=== PATIENT | female | born 1975 | race American Indian/Alaskan Native ===

== ENCOUNTER 2017-04-20 01:03 | Emergency (ER) | payer OTHER ==
[~2017-04-20] VITALS: Ht 157.5 cm; Wt 89.8 kg
[~2017-04-20 01:03] MED LIST: ALEVE220 M1 PO; AUGMENTIN 875-1 EACH PO; AZITHROMYCIN250 MG PO; CEPHALEXIN500 MG PO; CLARITIN10 MG PO; CRUTCH1 EACH; DICYCLOMINE HCL10 MG PO; FLEXERIL10 MG PO; GUAIATUSSIN AC10 ML PO; HYDROCODON-ACE1 EAC8 PO; IBUPROFEN800 MG PO; KEFLEX500 MG PO; LOPERAMIDE2 MG PO; MELOXICAM15 MG PO; NORCO 5-325 TA1 EACH PO; PRENATAL 19 TA1 EAC1 PO; PRENATAL-FOLIC1 EACH PO; PROGESTERONE100 MG PO; PROMETHAZINE HC25 M1 PO; SEPTRA DS TABL1 EACH PO; TRAMADOL HCL50 MG PO; VITAMIN D350000 UNIT PO
[2017-04-20] MEDS ORDERED: TRAMADOL HCL50 MG PO (03:29)
== END 2017-04-20 03:57 | disposition home or self-care (01) ==
LOC: ED 01:03
DX: S20.211A Contusion of right front wall of thorax, initial encounter (principal); F17.200 Nicotine dependence, unspecified, uncomplicated; Z79.899 Other long term (current) drug therapy; W19.XXXA Unspecified fall, initial encounter
CPT/HCPCS: 71101; 99282; 99283

== ENCOUNTER 2017-04-22 17:01 | Emergency (ER) | payer OTHER ==
[~2017-04-22] VITALS: Ht 157.5 cm; Wt 86.2 kg
[2017-04-22] MEDS ORDERED: PERCOCET 5-3251 EACH PO (18:06)
--- NOTE | 2017-04-26 19:59 | EKG ---
[facility] [address] [facility] [place] [address] Signed Normal sinus rhythm Normal ECG No previous ECGs available Confirmed by PATO DAVIES MD ([id number]) on 04/26/2017 7:59:28 PM Electronically Signed By: PATO DAVIES MD 04/26/171958 PATIENT NAME: MO TALLEY Electrocardiogram DATE OF : 77 PHYSICIAN: PATO DAVIES MD REPORT #: [id number] REPORT IS CONFIDENTIAL AND NOT TO BE RELEASED WITHOUT AUTHORIZATION
== END 2017-04-22 18:29 | disposition home or self-care (01) ==
LOC: ED 17:01
DX: S20.211A Contusion of right front wall of thorax, initial encounter (principal); F17.200 Nicotine dependence, unspecified, uncomplicated; Z79.899 Other long term (current) drug therapy; W22.8XXA Striking against or struck by other objects, initial encounter
CPT/HCPCS: 93005; 93010; 99284

== ENCOUNTER 2018-11-08 00:34 | Emergency (ER) | payer OTHER ==
[~2018-11-08] VITALS: Ht 157.5 cm; Wt 86.2 kg
[~2018-11-08 00:34] MED LIST changes: +PERCOCET 5-3251 EACH PO; +ULTRAM50 MG PO
[2018-11-08] MEDS ORDERED: ZOFRAN4 MG PO (03:06)
== END 2018-11-08 03:16 | disposition home or self-care (01) ==
LOC: ED 00:34
DX: A08.4 Viral intestinal infection, unspecified (principal); G43.909 Migraine, unspecified, not intractable, without status migrainosus; F17.200 Nicotine dependence, unspecified, uncomplicated
CPT/HCPCS: 80053; 81001; 83690; 85025; 96361; 96374; 99284-25; J2405; J7030

== ENCOUNTER 2020-05-11 10:12 | Emergency (ER) | payer OTHER ==
[~2020-05-11] VITALS: Ht 157.5 cm; Wt 86.2 kg
--- OUTSIDE RECORDS SUMMARY | ~2020-05-11 | XMS | Encounter Summary ---
Demographics + + + | Address | [address] | | | [place] [address] | + + + | Home Phone | | + + + | Preferred Language | Unknown | + + + | Marital Status | | + + + | Oriental Orthodox Affiliation | Unknown | + + + | Race | or | + + + | Ethnic Group | Not or | + + + Author + + + | Author | [facility] | | | and [place] | + + + | Organization | [facility] | | | and [place] | + + + | Address | Unknown | + + + | Phone | Unavailable | + + + Support + + + + + | Name | Relationship | Address | Phone | + + + + + | Fco Chester | ECON | [address] | | | | | [place] | | | | | [address] | | + + + + + Care Team Providers + +------+ + | Care Senior Sales Director Name | Role | Phone | + +------+ + PCP | Unavailable | + +------+ + Reason for Referral Diagnostic/Screening (Routine) +--------+--------+ + + + + | Status | Reason | Specialty | Diagnoses / | Referred By | Referred To | | | | | Procedures | Contact | Contact | +--------+--------+ + + + + | Closed | | Radiology | Diagnoses | Ángel, | [facility] | | | | | Diplopia | Jhoan Walker, | [address] | | | | | Paroxysmal | [address] | [place], | | | | | [place] | updated | [place] | | | | | Procedures | address | [address] | | | | | MRI | | Phone: | | | | | Angiogram | | [phone] | | | | | Head wo | | Fax: | | | | | Contrast | | [phone] | +--------+--------+ + + + + Reason for Visit Diagnostic/Screening (Routine) +--------+--------+ + + + + | Status | Reason | Specialty | Diagnoses / | Referred By | Referred To | | | | | Procedures | Contact | Contact | +--------+--------+ + + + + | Closed | | Radiology | Diagnoses | Ángel, | [facility] | | | | | Diplopia | Jhoan Walker, | [address] | | | | | Paroxysmal | MD [address] | [place], | | | | | [place] | updated | [place] | | | | | Procedures | address | [address] | | | | | MRI | | Phone: | | | | | Angiogram | | [phone] | | | | | Head wo | | Fax: | | | | | Contrast | | [phone] | +--------+--------+ + + + + Encounter Details +--------+ + + + + | Date | Type | Department | Care Team | Description | +--------+ + + + + | 12/16/ | Hospital | [facility] | Jhoan Neal | Diplopia; Paroxysmal | | 2014 | Encounter | [facility] [address] [place] [address] updated | [place] | | | | [place], | address | | | | | [place] [address] | | | | | | [phone] | | | +--------+ + + + + Social History + +-------+ +--------+------+ | Tobacco Use | Types | Packs/Day | Years | Date | | | | | Used | | + +-------+ +--------+------+ | Current Every Day | | | | | | Smoker | | | | | + +-------+ +--------+------+ + + +---------+ + | Alcohol Use | Drinks/Week | oz/Week | Comments | + + +---------+ + | Not Asked | | | recovering alcoholic | + + +---------+ + + + + | Sex Assigned at | Date Recorded | | | | + + + | Not on file | | + + + documented as of this encounter Medications at Time of Discharge + + + +---------+ + + | Medication | Sig | Dispensed | Refills | Start | End Date | | | | | | Date | | + + + +---------+ + + | tizanidine | Take 1 capsule by | 90 | 2 | 12/17/19 | | | (ZANAFLEX) 2 MG | mouth 3 times daily | capsule | | 15 | | | capsule | as needed for Muscle | | | | | | | spasms. | | | | | + + + +---------+ + + documented as of this encounter Plan of Treatment Not on filedocumented as of this encounter Procedures + +--------+ + + + | Procedure Name | Priori | Date/Time | Associated Diagnosis | Comments | | | ty | | | | + +--------+ + + + | MRI ANGIOGRAM HEAD | Routin | 12/16/2014 | Diplopia | Results for this | | WO CONTRAST | e | 10:27 AM | Paroxysmal | procedure are in the | | | | PDT | [place] | results section. | + +--------+ + + + documented in this encounter Results MRI Angiogram Head wo Contrast (12/16/2014 10:27 AM PDT) + + | Specimen | + + | | + + + + + | Narrative | Performed At | + + + | MRI ANGIOGRAM HEAD WO CONTRAST 12/16/2014 10:15 AM HISTORY: | [facility] | | Diplopia, right sided headaches. COMPARISON: None. PROTOCOL: | [facility] | | MRA of the head was performed with axial 3-D [id number] technique | [facility] | | without contrast. Reconstruction views were obtained. FINDINGS: | - IMAGING | | Right Carotid: The petrous, cavernous, and supraclinoid segments are | | | patent. There is normal branching of the MCA and ROZINA. An anterior | | | communicating artery is observed. A posterior communicating artery is | | | seen. There is a small posterior communicating artery. An anterior | | | communicating artery is present. Left Carotid: The petrous, | | | cavernous, and supraclinoid segments are patent. There is normal | | | branching of the MCA and ROZINA. An anterior communicating artery is | | | observed. A posterior communicating artery is seen. Anterior and | | | posterior communicating arteries are seen. Vertebrobasilar: The | | | distal vertebral arteries are patent. The basilar artery is normal. A | | | right anterior inferior cerebellar artery is present. Normal | | | branching is observed of the superior cerebellar arteries. Normal | | | branching of the poultry culler is seen. Limited evaluation of the brain | | | demonstrates no acute findings. Imaged orbits, paranasal sinuses, and | | | mastoids are unremarkable. IMPRESSION - Gross patency of | | | bilateral carotid and vertebral basilar arteries with no evidence for | | | aneurysm. Dictated and Signed by: Varun Coon MD | | | Electronically signed: 12/16/2014 1:52 PM | | + + + + + | Procedure Note | + + | Eric, Rad Results In - 12/16/2014 1:55 PM PDT MRI ANGIOGRAM HEAD WO CONTRAST | | 12/16/2014 10:15 AMHISTORY: Diplopia, right sided headaches.COMPARISON: None.PROTOCOL: | | MRA of the head was performed with axial 3-D vnua-hh-wihdly techniquewithout contrast. | | Reconstruction views were obtained.FINDINGS:Right Carotid: The petrous, cavernous, and | | supraclinoid segments are patent.There is normal branching of the MCA and ROZINA. An | | anterior communicating arteryis observed. A posterior communicating artery is seen. | | There is a smallposterior communicating artery. An anterior communicating artery is | | present.Left Carotid: The petrous, cavernous, and supraclinoid segments are patent.There | | is normal branching of the MCA and ROZINA. An anterior communicating arteryis observed. A | | posterior communicating artery is seen. Anterior and posteriorcommunicating arteries are | | seen.Vertebrobasilar: The distal vertebral arteries are patent. The basilar artery | | isnormal. A right anterior inferior cerebellar artery is present. Normal branchingis | | observed of the superior cerebellar arteries. Normal branching of the poultry culler | | isseen.Limited evaluation of the brain demonstrates no acute findings. Imaged | | orbits,paranasal sinuses, and mastoids are unremarkable.IMPRESSION -Gross patency of | | bilateral carotid and vertebral basilar arteries with noevidence for aneurysm.Dictated | | and Signed by: Varun Coon MD Electronically signed: 12/16/2014 1:52 PM | |is observed. A posterior communicating artery is seen. Anterior and posterior | |communicating arteries are seen. | | | |Vertebrobasilar: The distal vertebral arteries are patent. The basilar artery is | |normal. A right anterior inferior cerebellar artery is present. Normal branching | |is observed of the superior cerebellar arteries. Normal branching of the poultry culler is | |seen. | | | |Limited evaluation of the brain demonstrates no acute findings. Imaged orbits, | |paranasal sinuses, and mastoids are unremarkable. | | | |IMPRESSION - | |Gross patency of bilateral carotid and vertebral basilar arteries with no | |evidence for aneurysm. | | | |Dictated and Signed by: Varun Coon MD | | Electronically signed: 12/16/2014 1:52 PM | + + + + + + + | Performing | Address | City/State/Zipcode | Phone Number | | Organization | | | | + + + + + | [facility] | [address] | [place], [place] | [phone] | | [facility] | | [address] | | | - IMAGING | | | | + + + + + documented in this encounter Visit Diagnoses + + | Diagnosis | + + | Diplopia | + + | Paroxysmal hemicrania Episodic paroxysmal hemicrania | + + documented in this encounter"
--- OUTSIDE RECORDS SUMMARY | ~2020-05-11 | XMS | Encounter Summary ---
Demographics + + + | Address | [address] | | | [place] [address] | + + + | Home Phone | | + + + | Preferred Language | Unknown | + + + | Marital Status | | + + + | Jew Affiliation | Unknown | + + + | Race | or | + + + | Ethnic Group | Not or | + + + Author + + + | Author | [facility] | | | and [place] | + + + | Organization | [facility] | | | and [place] | + + + | Address | Unknown | + + + | Phone | Unavailable | + + + Support + + + + + | Name | Relationship | Address | Phone | + + + + + | Fco Chester | ECON | [address] | | | | | [place] | | | | | [address] | | + + + + + Care Team Providers + +------+ + | Care Jig Grinder Set Up Operator Name | Role | Phone | + +------+ + PCP | Unavailable | + +------+ + Reason for Visit + + + | Reason | Comments | + + + | Hand Pain | left carpal tunnel pain ONSET 10 months | + + + | Other | establish care with Miguel Ángel Zack | + + + Evaluate & Treat (Routine) +--------+--------+ + + + + | Status | Reason | Specialty | Diagnoses / | Referred By | Referred To | | | | | Procedures | Contact | Contact | +--------+--------+ + + + + | Closed | | Orthopedic | Diagnoses | Leonel, | Elpidio, | | | | Surgery | [place] | Nathaniel Cooper, | Juan Cooper MD | | | | | tunnel | [facility] [address] | [address] [place] [address] | | | | | syndrome | [address] | [address] | | | | | | [place]ANAY | [place] | | | | | | [place], | [address] Phone: | | | | | | [place] [address] | [phone] | | | | | | Phone: | Fax: | | | | | | [phone] | [phone] | | | | | | Fax: | | | | | | | [phone] | | +--------+--------+ + + + + Encounter Details +--------+---------+ + + + | Date | Type | Department | Care Team | Description | +--------+---------+ + + + | 04/29/ | Office | [facility] | Miguel Ángel Dixon | Radial styloid | | 2016 | Visit | ORTHOPEDIC SURGERY | [address] | tenosynovitis of | | | | [address] [place] | [place] | left hand (Primary | | | | [place] | [place], [place] [address] | Dx); Left carpal | | | | [address] | [phone] | tunnel syndrome | | | | [phone] | | | +--------+---------+ + + + Social History + +-------+ [...] + + documented as of this encounter Last Filed Vital Signs + + + + + | Vital Sign | Reading | Time Taken | Comments | + + + + + | Blood Pressure | - | - | | + + + + + | Pulse | - | - | | + + + + + | Temperature | 36.6 C (97.8 F) | 04/29/2016 4:08 PM | | | | | PDT | | + + + + + | Respiratory Rate | - | - | | + + + + + | Oxygen Saturation | - | - | | + + + + + | Inhaled Oxygen | - | - | | | Concentration | | | | + + + + + | Weight | 93.9 kg (207 lb) | 04/29/2016 4:08 PM | | | | | PDT | | + + + + + | Height | 157.5 cm (5' 2") | 04/29/2016 4:08 PM | | | | | PDT | | + + + + + | Body Mass Index | 37.86 | 04/29/2016 4:08 PM | | | | | PDT | | + + + + + documented in this encounter H&P Notes Miguel Ángel Dixon PA-C - 04/30/2016 5:39 PM PDTFormatting of this note might be differe nt from the original. ORTHOPEDICS [address] [place] [id number] FAX: [phone] Name: Ashley Brewer : 1975 Age: 40 y.o. Todays Date: 04/30/2016 Primary Care Provider: Nathaniel Castaneda PA-C Chief Complaint Patient presents with Hand Pain left carpal tunnel pain ONSET 10 months Other establish care with Miguel Ángel Dixon History of Present Illness: Ashley Brewer is a new patient that presents with left carpal tunnel syndrome and pain in her left wrist. Describes that she has had left carpal tunnel syndrome for over the past 5 years that was previously diagnosed by Dr. Esqueda in December 2011 that was diagnosed as mod erately severe. Today she states that she has been dropping objects and has a significant o nly decreased director of diversity and inclusion strength. However she is not present with the characteristic numbness an d tingling for carpal tunnel syndrome. Interestingly she denies numbness and tingling. She also states today that she has pain at the radial aspect of the left wrist. Describes the pain has been present for approximately the past 10 months and denies any inciting incident or trauma. Describes the pain as sharp and worse when she uses her left hand. Relieved wit h rest. She presented this complaint to her primary care provider who diagnosed with tendin itis. Patient describes that she did receive 23 injection therapy courses at this area but received no pain relief. It is unclear exactly where the injection therapies were performed at that she does not believe that it was at the Current level of pain today is rated at 10 out of 10 at the left wrist? Past Medical History Diagnosis Date Migraine Past Surgical History Procedure Laterality Date Dilation and curettage of uterus section 01/22/16 Allergies Allergen Reactions Oxycodone Rash Indomethacin Swelling Current Outpatient Prescriptions Medication Sig Dispense Refill HYDROcodone-acetaminophen (NORCO) 5-325 mg per tablet Take 1 tablet by mouth. ibuprofen (ADVIL,MOTRIN) 600 MG tablet Take 600 mg by mouth. tizanidine (ZANAFLEX) 2 MG capsule Take 1 capsule by mouth 3 times daily as needed for Muscle spasms. 90 capsule 2 traMADol (ULTRAM) 50 mg tablet Take 1 tablet by mouth EVERY 6 TO 8 HOURS NEEDED for Pain. 30 tablet 0 No current facility-administered medications for this visit. History reviewed. No pertinent family history. History Substance Use Topics Smoking status: Current Every Day Smoker Smokeless tobacco: Not on file Alcohol Use: Not on file Comment: recovering alcoholic Review of Systems: Constitutional: Negative for fever, malaise, fatigue or weight loss. HENT: Negative for vision loss/changes. Positive for glasses and or contacts. Respiratory: Negative for Shortness of breath or labored respirations Cardiovascular: Negative for chest pain, palpitations and leg swelling. Gastrointestinal: Negative for nausea, vomiting, diarrhea and constipation. Negative for a bdominal pain. Musculoskeletal: Positive for joint pain Genitourinary: Negative for incontinence or dysuria Skin: Negative for rashs and wounds. Neurological: Negative for dizziness, fainting, or seizures. Psych: Negative for depression, nervousness or anxiety Imaging/Studies: Reviewed imaging studies today in our office Xr Wrist Left 3 + Vw 04/29/2016 EXAM: XR WRIST LEFT 3 + VW dated 04/29/2016 2:53 PM HISTORY:WRIST PAIN COMPARI SON: None. FINDINGS:Prominent scapholunate interosseous space. No abnormal scapholunate an gle. No abnormal tilt of the lunate. No acute osseous abnormalities. No significant degen erative changes. Mineralization is normal. The soft tissues are unremarkable. IMPRESSION - Prominent scapholunate interosseous space. This suggests the possibility of underlying l igamentous injury. Dictated and Signed by: Froylan Ruiz MD Electronically signed: 04/19 4:24 PM Physical Exam: Filed Vitals: 04/29/16 1608 Temp: 36.6 C (97.8 F) TempSrc: Temporal Height: 1.575 m (5' 2") Weight: 93.895 kg (207 lb) Constitutional: Pleasant and cooperative with exam. In no acute distress. Appears their stated age. Head: Normal cephalic and atraumatic. Eyes: EOM intact ENT: Adequate hearing noted bilaterally Cardiovacular: No lower extremity edema noted. Pulmonary: Non-labored respirations. Pt does not appear short of breath. Musculoskeletal: Examination of the left hand reveals no identifiable deformity and hands are symmetrical compared bilaterally. Examination of the palmar aspect of the wrist and wise d reveals mild thenar atrophy. She describes that Tinel's and Phalen's tests did not cause her any discomfort today for they have been positive in the past as documented by her primar y care provider. She has a very significant decreased director of diversity and inclusion strength left hand when compared bilaterally. Approximately one quarter strength. She has been dropping objects in her lef t hand. She has a very strong ulnar deviation test the left hand and has no discomfort with the same test at the right hand. Pain located at the first dose compartment just proximal to the anatomical snuffbox Neurologic: No obvious neurological abnormalities observed with patient. Skin: Warm and dry. No erythema, induration, swelling or signs of infection are observed Psych: Pt is alert, oriented. Answers questions promptly when asked Assessment/Plan: 1. Left carpal tunnel syndrome 2. Left de Quervain's synovitis A. patient is diagnosed with quite significant carpal tunnel syndrome in 2010 and unfortun ately could not proceed with surgical intervention although it was recommended. She now wis hes to proceed with surgical intervention as the symptomatology is becoming more severe in t he left hand and she is now dropping objects and unable to director of diversity and inclusion her daughter well. Therefor e did review treatment options consisting of anti-inflammatory's, wrist bracing and surgical intervention. Patient wishes to proceed with surgical intervention. Therefore I did revie w the procedure for a left carpal tunnel release with expected outcome and expected recovery time. Patient wishes to proceed with authorization for a left carpal tunnel release. Info rmed him that I will submit for this procedure and she'll be contact by our office staff for further scheduling and preoperative exam with Dr. Juan Magallanes. In regards to the lef t de Quervain's tenosynovitis she has had to 3 course of injection therapy at the left hand by her primary care provider which provided her no significant relief. Patient does not bel ieve that injection therapy was provided in the right location at the first dorsal compartme nt tendon as physical exam reviewed today. She believes that injection therapy was previous ly performed more proximally near the MCP joint. Therefore she does wish to proceed with re peat injection therapy. We did discuss further treatment options consisting of an inflammat ory, wrist bracing, injection and surgical intervention. She is to receive injection therap y. However on time constraints will not allow for induction therapy today. Patient states that she will follow-up for injection therapy at the left wrist. B. Patient is advised that if they have any questions, comments or concerns to contact our office. I spent 30 minutes face to face with the patient, with over 50% spent in counseling and/or coordination of care regarding chronic left carpal tunnel syndrome, left de Quervain's synov itis, review pathology, nerve Study and past treatments with further discussion and developm ent of our treatment plan with review of a carpal tunnel release surgery. Miguel Ángel Dixon PA-C 04/30/2016 17:39 This history and physical was dictated using the [employer] voice recognition system. There may be minor errors in grammar. documented in th is encounter Plan of Treatment Not on filedocumented as of this encounter Visit Diagnoses + + | Diagnosis | + + | Radial styloid tenosynovitis of left hand - Primary Radial styloid tenosynovitis | + + | Left carpal tunnel syndrome Carpal tunnel syndrome | + + documented in this encounter
--- OUTSIDE RECORDS SUMMARY | ~2020-05-11 | XMS | Encounter Summary ---
Demographics + + + | Address | [address] | | | [place] [address] | + + + | Home Phone | | + + + | Preferred Language | Unknown | + + + | Marital Status | | + + + | Yazidism Affiliation | Unknown | + + + | Race | or | + + + | Ethnic Group | Not or | + + + Author + + + | Author | [facility] | | | and [place] | + + + | Organization | [facility] | | | and [place] | + + + | Address | Unknown | + + + | Phone | Unavailable | + + + Support + + + + + | Name | Relationship | Address | Phone | + + + + + | Fco Chester | ECON | [address] | | | | | [place] | | | | | [address] | | + + + + + Care Team Providers + +------+ + | Care Scada Engineer Name | Role | Phone | + +------+ + PCP | Unavailable | + +------+ + Encounter Details +--------+ + + + + | Date | Type | Department | Care Team | Description | +--------+ + + + + | 04/14/ | Orders Only | [facility] | Miguel Ángel Dixon | Carpal tunnel | | 2016 | | ORTHOPEDIC SURGERY | [address] | syndrome of left | | | | [address] [place] | [address] [place] | wrist (Primary Dx) | | | | [place], [place] | [place] [address] | | | | | [address] | [phone] | | | | | [phone] | | | +--------+ + + + [...] Not on filedocumented as of this encounter Results XR Wrist Left 3 + Vw (04/29/2016 3:40 PM PDT) + + | Specimen | + + | | + + + + + | Narrative | Performed At | + + + | EXAM: XR WRIST LEFT 3 + VW dated 04/29/2016 2:53 PM HISTORY:WRIST | [facility] | | PAIN COMPARISON: None. FINDINGS:Prominent scapholunate | [facility] | | interosseous space. No abnormal scapholunate angle. No abnormal | [facility] | | tilt of the lunate. No acute osseous abnormalities. No | - IMAGING | | significant degenerative changes. Mineralization is normal. The | | | soft tissues are unremarkable. IMPRESSION - Prominent | | | scapholunate interosseous space. This suggests the possibility of | | | underlying ligamentous injury. Dictated and Signed by: Froylan Robbins | | | MD Joseph Electronically signed: 04/29/2016 4:24 PM | | + + + + + | Procedure Note | + + | Eric, Rad Results In - 04/29/2016 4:27 PM PDT EXAM: XR WRIST LEFT 3 + VW dated | | 04/29/2016 2:53 PMHISTORY:WRIST PAINCOMPARISON: None.FINDINGS:Prominent scapholunate | | interosseous space. No abnormal scapholunateangle. No abnormal tilt of the lunate. No | | acute osseous abnormalities. Nosignificant degenerative changes. Mineralization is | | normal. The soft tissuesare unremarkable.IMPRESSION -Prominent scapholunate | | interosseous space. This suggests the possibility ofunderlying ligamentous | | injury.Dictated and Signed by: Froylan Ruiz MD Electronically signed: 04/29/2016 | | 4:24 PM | |significant degenerative changes. Mineralization is normal. The soft tissues | |are unremarkable. | | | |IMPRESSION - | | | |Prominent scapholunate interosseous space. This suggests the possibility of | |underlying ligamentous injury. | | | |Dictated and Signed by: Froylan Ruiz MD | | Electronically signed: 04/29/2016 4:24 PM | + + + + + + + | Performing | Address | City/State/Zipcode | Phone Number | | Organization | | | | + + + + + | [facility] | [address] | [place] | [phone] | | [facility] | | [address] | | | - IMAGING | | | | + + + + + documented in this encounter Visit Diagnoses + + | Diagnosis | + + | Carpal tunnel syndrome of left wrist - Primary Carpal tunnel syndrome | + + documented in this encounter"
--- OUTSIDE RECORDS SUMMARY | ~2020-05-11 | XMS | Encounter Summary ---
Demographics + + + | Address | [address] | | | [place] [address] | + + + | Home Phone | | + + + | Preferred Language | Unknown | + + + | Marital Status | | + + + | Mormon Affiliation | Unknown | + + + | Race | or | + + + | Ethnic Group | Not or | + + + Author + + + | Author | [facility] | | | and [place] | + + + | Organization | [facility] | | | and [place] | + + + | Address | Unknown | + + + | Phone | Unavailable | + + + Support + + + + + | Name | Relationship | Address | Phone | + + + + + | Fco Chester | ECON | [address] | | | | | [place] | | | | | [address] | | + + + + + Care Team Providers + +------+ + | Care Grain Thresher Name | Role | Phone | + +------+ + PCP | Unavailable | + +------+ + Encounter Details +--------+ + + + + | Date | Type | Department | Care Team | Description | +--------+ + + + + | 04/14/ | Orders Only | [facility] | Miguel Ángel Dixon | Carpal tunnel | | 2015 | | ORTHOPEDIC SURGERY | [address] | syndrome of left | | | | [address] [place] | [address] [place] | wrist | | | | [place], [place] | [place] [address] | | | | | [address] | [phone] | | | | | [phone] | | | +--------+ + + + [...] | + +--------+ + + + | XR WRIST LEFT 3 + VW | Routin | 04/29/2016 | Carpal tunnel | Results for this | | | e | 3:40 PM | syndrome of left | procedure are in the | | | | PDT | wrist | results section. | + +--------+ + + + documented in this encounter Results XR Wrist Left 3 + Vw (04/29/2016 3:40 PM PDT) + + | Specimen | + + | | + + + + + | Narrative | Performed At | + + + | EXAM: XR WRIST LEFT 3 + VW dated 04/29/2016 2:53 PM HISTORY:WRIST | [facility] | | PAIN COMPARISON: None. FINDINGS:Prominent scapholunate | [facility] | | interosseous space. No abnormal scapholunate [...] | + + + + + | [facility] | [address] | [place] | [phone] | | [facility] | | [address] | | | - IMAGING | | | | + + + + + documented in this encounter Visit Diagnoses + + | Diagnosis | + + | Carpal tunnel syndrome of left wrist Carpal tunnel syndrome | + + documented in this encounter"
--- OUTSIDE RECORDS SUMMARY | ~2020-05-11 | XMS | Encounter Summary ---
Demographics + + + | Address | [address] | | | [place] [address] | + + + | Home Phone | | + + + | Preferred Language | Unknown | + + + | Marital Status | | + + + | Baptism Affiliation | Unknown | + + + | Race | or | + + + | Ethnic Group | Not or | + + + Author + + + | Author | [facility] | | | and [place] | + + + | Organization | [facility] | | | and [place] | + + + | Address | Unknown | + + + | Phone | Unavailable | + + + Support + + + + + | Name | Relationship | Address | Phone | + + + + + | Fco Chester | ECON | [address] | | | | | [place] | | | | | [address] | | + + + + + Care Team Providers + +------+ + | Care Risk Control Officer Name | Role | Phone | + +------+ + PCP | Unavailable | + +------+ + Reason for Visit +--------+--------+ + | Reason | Onset | Comments | | | Date | | +--------+--------+ + | Other | 12/17/ | MRA results | | | 2014 | | +--------+--------+ + Encounter Details +--------+ + + + + | Date | Type | Department | Care Team | Description | +--------+ + + + + | 12/17/ | Telephone | [facility] [place] | Saundra Thurman | Other (MRA results) | | 2014 | | NEUROLOGY [facility] | ABRAM Rivero | | | | | [address] [facility], | | | | | | [facility] | | | | | | [place] [address] | | | | | | [phone] | | | +--------+ + + + [...] + + documented as of this encounter Miscellaneous Notes Telephone Encounter - Veronica Dimas - 12/26/2014 1:32 PM PDTPatient returned call. I conv eyed the message left below to her and informed her that someone would call her back if ther e was any other details/information for her. She verbalized understanding.Electronically sig adali by Veronica Dimas at 12/26/2014 1:33 PM PDTTelephone Encounter - Saundra Thurman RN - 12/17/2014 2:19 PM PDTNo answer, LVM. Called patient to inform her that the MRI of her blood vessels in her head looks normal per Dr. Neal. do cumented in this encounter Plan of Treatment Not on filedocumented as of this encounter Visit Diagnoses Not on filedocumented in this encounter"
--- OUTSIDE RECORDS SUMMARY | ~2020-05-11 | XMS | Encounter Summary ---
Demographics + + + | Address | [address] | | | [place] [address] | + + + | Home Phone | | + + + | Preferred Language | Unknown | + + + | Marital Status | | + + + | Samaritan Affiliation | Unknown | + + + | Race | or | + + + | Ethnic Group | Not or | + + + Author + + + | Author | [facility] | | | and [place] | + + + | Organization | [facility] | | | and [place] | + + + | Address | Unknown | + + + | Phone | Unavailable | + + + Support + + + + + | Name | Relationship | Address | Phone | + + + + + | Fco Chester | ECON | [address] | | | | | [place] | | | | | [address] | | + + + + + Care Team Providers + +------+ + | Care Detector Car Operator Name | Role | Phone | + +------+ + PCP | Unavailable | + +------+ + Reason for Visit + + + | Reason | Comments | + + + | Follow-up | Migraine | + + + Follow Up (Routine) +--------+--------+ + + + + | Status | Reason | Specialty | Diagnoses / | Referred By | Referred To | | | | | Procedures | Contact | Contact | +--------+--------+ + + + + | Closed | | Neurology | Diagnoses | Leonel, | Ángel, | | | | | Migraine | Nathaniel [address], | Jhoan Walker MD | | | | | | [address] [address] | [address] | | | | | | [address] | updated | | | | | | [address] | address | | | | | | [place], | | | | | | | [place] [address] | | | | | | | Phone: | | | | | | | [phone] | | | | | | | Fax: | | | | | | | [phone] | | +--------+--------+ + + + + Encounter Details +--------+---------+ + + + | Date | Type | Department | Care Team | Description | +--------+---------+ + + + | 12/16/ | Office | [facility] | Jhoan Neal | Migraine headache | | 2015 | Visit | NEUROLOGY [facility] | MD Denise Need updated | (Primary Dx); | | | | [address] [facility], | address | 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; Bruxism; | | | | [place] [address] | | SUKHJINDER (obstructive | | | | [phone] | | sleep apnea); TMJ | | | | | | (temporomandibular | | | | | | joint syndrome) | +--------+---------+ + + + Social History [...] + + + | Blood Pressure | 131/83 | 12/16/2014 8:34 AM | | | | | PDT | | + + + + + | Pulse | 67 | 12/16/2014 8:34 AM | | | | | PDT | | + + + + + | Temperature | - | - | | + + + + + | Respiratory Rate | 16 | 12/16/2014 8:34 AM | | | | | PDT | | + + + + + | Oxygen Saturation | - | - | | + + + + + | Inhaled Oxygen | - | - | | | Concentration | | | | + + + + + | Weight | 93.9 kg (207 lb) | 12/16/2014 8:34 AM | | | | | PDT | | + + + + + | Height | 157.5 cm (5' 2") | 12/16/2014 8:34 AM | | | | | PDT | | + + + + + | Body Mass Index | 37.86 | 12/16/2014 8:34 AM | | | | | PDT | | + + + + + documented in this encounter Patient Instructions Patient Instructions Jhoan Neal MD - 12/16/2014 9:01 AM PDT1) Try zanaflex for muscle tension 2) we will call if abnormal results on MRI 3) Return to neurology after sleep study Tizanidine Hydrochloride Oral tablet What is this medicine? TIZANIDINE (cal rodriguez) helps to relieve muscle spasms. It may be used to help in the t reatment of multiple sclerosis and spinal cord injury. This medicine may be used for other purposes; ask your health care provider or pharmacist i f you have questions. What should I tell my health care provider before I take this medicine? They need to know if you have any of these conditions: kidney disease liver disease low blood pressure mental disorder an unusual or allergic reaction to tizanidine, other medicines, lactose (tablets only), foods, dyes, or preservatives or trying to get breast-feeding How should I use this medicine? Take this medicine by mouth with a full glass of water. Take this medicine on an empty stom ach, at least 30 minutes before or 2 hours after food. Do not take with food unless you talk with your doctor. Follow the directions on the prescription label. Take your medicine at re gular intervals. Do not take your medicine more often than directed. Do not stop taking exce pt on your doctor's advice. Suddenly stopping the medicine can be very dangerous. Talk to your brew house supervisor regarding the use of this medicine in children. Patients over 65 years old may have a stronger reaction and need a smaller dose. Overdosage: If you think you have taken too much of this medicine contact a poison control center or emergency room at once. NOTE: This medicine is only for you. Do not share this medicine with others. What if I miss a dose? If you miss a dose, take it as soon as you can. If it is almost time for your next dose, ta ke only that dose. Do not take double or extra doses. What may interact with this medicine? Do not take this medicine with any of the following medications: ciprofloxacin clonidine fluvoxamine guanabenz guanfacine methyldopa This medicine may also interact with the following medications: acyclovir alcohol antihistamines baclofen barbiturates like phenobarbital benzodiazepines cimetidine famotidine female hormones, like estrogens or progestins and control pills medicines for high blood pressure medicines for irregular heartbeat medicines for pain like codeine, morphine, and hydrocodone medicines for sleep rofecoxib some antibiotics like levofloxacin, ofloxacin ticlopidine zileuton This list may not describe all possible interactions. Give your health care provider a list of all the medicines, herbs, non-prescription drugs, or dietary supplements you use. Also t ell them if you smoke, drink alcohol, or use illegal drugs. Some items may interact with you r medicine. What should I watch for while using this medicine? You may get drowsy or dizzy. Do not drive, use machinery, or do anything that needs mental alertness until you know how this medicine affects you. Do not stand or sit up quickly, agueda cially if you are an older patient. This reduces the risk of dizzy or fainting spells. Alcoh ol may interfere with the effect of this medicine. Avoid alcoholic drinks. Your mouth may get dry. Chewing sugarless gum or sucking hard candy, and drinking plenty of water may help. Contact your doctor if the problem does not go away or is severe. What side effects may I notice from receiving this medicine? Side effects that you should report to your doctor or health property caretaker as soon as p ossible: allergic reactions like skin rash, itching or hives, swelling of the face, lips, or tong ue blurred vision fainting spells hallucinations nausea or vomiting nervousness redness, blistering, peeling or loosening of the skin, including inside the mouth slow or irregular heartbeat, palpitations, or chest pain yellowing of the skin or eyes Side effects that usually do not require medical attention (report to your doctor or health property caretaker if they continue or are bothersome): dizziness drowsiness dry mouth tiredness or weakness This list may not describe all possible side effects. Call your doctor for medical advice a bout side effects. You may report side effects to FDA at 7-251-CGY-6164. Where should I keep my medicine? Keep out of the reach of children. Store at room temperature between 15 and 30 degrees C (59 and 86 degrees F). Throw away any unused medicine after the expiration date. NOTE:This sheet is a summary. It may not cover all possible information. If you have questi ons about this medicine, talk to your doctor, pharmacist, or health care provider. Copyright 2015 [employer] Standard documented in this encounter Progress Notes Jhoan Neal MD - 12/16/2014 8:34 AM PDTFormatting of this note might be differen t from the original. Jhoan Neal MD [address] [facility] [address] [place] [address] Neurology Outpatient ProgressNote Patient ID: Ms. Brewer is a 38 y.o. female with a pertinent history of migraine headaches and TMJ returni ng to clinic for headache management. Interval History: Since last visit, Ms. Brewer tried taking indomethacin and unfortunately developed mouth swel ling after 48 hours and needed to discontinue the medication. She has continued to have near daily headaches that last all day. She describes a sensation of tension bitemporally that s he can wake up with. This seems tied with her bruxism at night, and her dentist (Dr. Otto) be lieves she has significant TMJ. Ms. Brewer notes that the Vicodin she was recently prescribed after a cyst removal provided head pain relief. Ms. Brewer and her are contemplating g etting . Past Medical History: Past Medical History Diagnosis Date Migraine Current Medications: Current Medications tizanidine (ZANAFLEX) 2 MG capsule Take 1 capsule by mouth 3 times daily as needed for Mus aayush spasms. Allergies: Allergies Allergen Reactions Indomethacin Swelling REVIEW OF SYSTEMS GENERALLY: No fever, no night sweats, no anemia, no fatigue, no recent profound weight ch anges. CARDIOVASCULAR: No heart attacks, no heart murmur, no heart fluttering, no chest pain, no ankle swelling. LUNG DISEASE: No shortness of breath, + cough, no tuberculosis, no bloody cough, no asthm a, no emphysema/COPD. Examination: BP 131/83 | Pulse 67 | Resp 16 | Ht 1.575 m (5' 2") | Wt 93.895 kg (207 lb) | BMI 37.8 5 kg/m2 General: well developed and well nourished HEENT: sclera clear, anicteric Cardiovascular: regular rate and rhythm Respiratory: clear to auscultation, no wheezes or rales and unlabored breathing Extremities: peripheral pulses normal, no pedal edema, no clubbing or cyanosis Neurologic: Mental Status: alert, oriented to person, place, and time, speech is fluent Cranial Nerves: cranial nerves II-XII are intact Motor: normal 5/5 strength in all tested muscle groups Sensation: normal light touch compared side to side Coordination/Cerebellar: finger to nose intact Gait: normal Radiographic Review: No new imaging, MRI scheduled for later today Laboratory Review: No results found for this basename: na, k, cl, co2, bun, crea, ALT, AST, GGT, ALKP HOS, BILITOT No results found for this basename: hba1c, fhk5trf, ldl, ldldirect, ldlext, dldlex No results found for this basename: WBC, HGB, HCT, MCV, LABPLAT, PLT Assessment: Ms. Brewer is a 38 y.o. female with a history of migraine headaches and TMJ returning to clin for headache management. 1) Headaches: differential includes paroxysmal hemicrania vs. Another autonomic cephalalgia vs. Atypical migraine vs. Overlap of both primary headache syndromes. Horizontal diplopia i s concerning for a potential underlying lesional cause. Awaiting repeat MRI. Triggered by TM J. 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 May be precipitated by SUKHJINDER. 3) SUKHJINDER: likely given craniofacial anatomy and history. May be worsening headache syndrome. Plan: 1) MRI today 2) Sleep Study scheduled for 01/15 3) Discussed that many prophylaxis medications for headache are teratogenic and should be a voided if Ms. Brewer is contemplating getting . 4) Will prescribe Zanaflex 2 mg TIDPRN to see if this helps with muscle tension. 5) If no longer trying to get , may consider Topamax as next medication. 6) Follow up 1 week after sleep study. We will call with MRI results. Electronically signed by: Jhoan Neal MD, 12/16/2014 9:07 documented in th is encounter Plan of Treatment Not on filedocumented as of this encounter Visit Diagnoses + + | Diagnosis | + + | Migraine headache - Primary Migraine, unspecified, without mention of intractable | | migraine without mention of status migrainosus | + + | Paroxysmal hemicrania Episodic paroxysmal hemicrania | + + | Bruxism Other specified psychophysiological malfunction | + + | SUKHJINDER (obstructive sleep apnea) Obstructive sleep apnea (adult) (pediatric) | + + | TMJ (temporomandibular joint syndrome) Temporomandibular joint disorders, unspecified | + + documented in this encounter
--- OUTSIDE RECORDS SUMMARY | ~2020-05-11 | XMS | Encounter Summary ---
Demographics + + + | Address | [address] | | | [place] [address] | + + + | Home Phone | | + + + | Preferred Language | Unknown | + + + | Marital Status | | + + + | Bahai Affiliation | Unknown | + + + | Race | or | + + + | Ethnic Group | Not or | + + + Author + + + | Author | [facility] | | | and [place] | + + + | Organization | [facility] | | | and [place] | + + + | Address | Unknown | + + + | Phone | Unavailable | + + + Support + + + + + | Name | Relationship | Address | Phone | + + + + + | Fco Chester | ECON | [address] | | | | | [place] | | | | | [address] | | + + + + + Care Team Providers + +------+ + | Care Pr Intern Name | Role | Phone | + +------+ + PCP | Unavailable | + +------+ + Encounter Details +--------+ + + + + | Date | Type | Department | Care Team | Description | +--------+ + + + + | 04/29/ | Hospital | [facility] | ZackMiguel Ángel ndiaye | | | 2016 | Encounter | MED CTR XRAY [address] | | | | | [place] | [address] [place] | | | | | [place] [address] | [place] [address] | | | | | [phone] | [phone] | | | | | | | | +--------+ + + + [...] + + + +---------+ + + | ibuprofen | Take 600 mg by | | 0 | 05/20/20 | | | (ADVIL,MOTRIN) 600 | mouth. | | | 16 | | | MG tablet | | | | | | + + [...] + + + +---------+ + + | | Take 1 tablet by | | 0 | 01/21/20 | | | HYDROcodone-acetamin | mouth. | | | 15 | 7 | | ophen (NORCO) 5-325 | | | | | | | mg per tablet | | | | | | + + + +---------+ + + | traMADol (ULTRAM) | Take 1 tablet by | 30 | 0 | 04/29/20 | | | 50 mg | mouth EVERY 6 TO 8 | tablet | | 16 | 7 | | tabletIndications: | HOURS NEEDED for | | | | | | Radial styloid | Pain. | | | | | | tenosynovitis of | | | | | | | left hand, Left | | | | | | | carpal tunnel | | | | | | | syndrome | | | | | | + + [...] | PAIN COMPARISON: None. FINDINGS:Prominent scapholunate | [facility] | | interosseous space. No abnormal scapholunate [...] + + | [facility] [facility] | [address] | [place] | [phone] | | [facility] | | [address] | | | - IMAGING | | | | + + + + + documented in this encounter Visit Diagnoses Not on filedocumented in this encounter"
--- OUTSIDE RECORDS SUMMARY | ~2020-05-11 | XMS | Encounter Summary ---
Demographics + + + | Address | [address] | | | [place] [address] | + + + | Home Phone | | + + + | Preferred Language | Unknown | + + + | Marital Status | | + + + | Sikh Affiliation | Unknown | + + + | Race | or | + + + | Ethnic Group | Not or | + + + Author + + + | Author | [facility] | | | and [place] | + + + | Organization | [facility] | | | and [place] | + + + | Address | Unknown | + + + | Phone | Unavailable | + + + Support + + + + + | Name | Relationship | Address | Phone | + + + + + | Fco Chester | ECON | [address] | | | | | [place] | | | | | [address] | | + + + + + Care Team Providers + +------+ + | Care Candy Cutter Hand Name | Role | Phone | + +------+ + PCP | Unavailable | + +------+ + Reason for Referral Evaluate & Treat (Routine) +--------+ + + + + + | Status | Reason | Specialty | Diagnoses / | Referred By | Referred To | | | | | Procedures | Contact | Contact | +--------+ + + + + + | Closed | Specialty | Sleep | Diagnoses | Ángel, | [facility] | | | Services | Medicine | Snoring | Jhoan Walker, | Center [address] | | | Required | | SUKHJINDER | MD Need | Jorge Alberto | | | | | (obstructive | updated | [place], | | | | | sleep | address | [place] [address] | | | | | apnea) | | Phone: | | | | | Procedures | | [phone] | | | | | [place] POLYSOM | | Fax: | | | | | 6/>YRS SLEEP | | [phone] | | | | | 4/> ADDL | | | | | | | JACOBO ATTND | | | | | | | NPSG sched | | | | | | | on 01/15 | | | +--------+ + + + + + Diagnostic/Screening (Routine) +--------+--------+ + + + + | Status | Reason | Specialty | Diagnoses / | Referred By | Referred To | | | | | Procedures | Contact | Contact | +--------+--------+ + + + + | Closed | | Radiology | Diagnoses | Ángel, | [facility] | | | | | Diplopia | Jhoan Walker, | [address] | | | | | Paroxysmal | MD Need | Santhosh Trevizo, | | | | | hemicrania | updated | [place] | | | | | Procedures | address | [address] | | | | | MRI | | Phone: | | | | | Angiogram | | [phone] | | | | | Head wo | | Fax: | | | | | Contrast | | [phone] | +--------+--------+ + + + + Reason for Visit + + + | Reason | Comments | + + + | Migraine | | + + + Evaluate & Treat (Routine) +--------+--------+ + + + + | Status | Reason | Specialty | Diagnoses / | Referred By | Referred To | | | | | Procedures | Contact | Contact | +--------+--------+ + + + + | Closed | | Neurology | Diagnoses | Boshelly, | Ángel, | | | | | Migraine | Ignacia Self, | Jhoan Walker MD | | | | | | PA-C [address] | [address] | | | | | | [address] | updated | | | | | | [address] | address | | | [address] | | | | | | [place], | | | | | | | [place] | | | | | | | [address] | | | | | | | Phone: | | | | | | | [phone] | | | | | | | Fax: | | | | | | | [phone] | | +--------+--------+ + + + + Encounter Details +--------+---------+ + + + | Date | Type | Department | Care Team | Description | +--------+---------+ + + + | 11/08/ | Office | [facility] [place] | Jhoan Neal | Paroxysmal | | 2014 | Visit | NEUROLOGY BRISA Walker MD Need updated | hemicrania (Primary | | | | [address] [facility], | address | Dx); Diplopia; | | | | [address] [place] | | Snoring; SUKHJINDER | | | | [place] [address] | | (obstructive sleep | | | | [phone] | | apnea) | +--------+---------+ + + + Social History + +-------+ +--------+------+ | Tobacco Use | Types | Packs/Day | Years | Date | | | | | Used | | + +-------+ +--------+------+ | Current Every Day | | | | | | Smoker | | | | | + +-------+ +--------+------+ + + | Tobacco Cessation: Ready to Quit: No; Counseling Given: No | + + + + +---------+ + | Alcohol Use [...] + + + | Blood Pressure | 132/77 | 11/08/2014 8:55 AM | | | | | PST | | + + + + + | Pulse | 65 | 11/08/2014 8:55 AM | | | | | PST | | + + + + + | Temperature | - | - | | + + + + + | Respiratory Rate | 16 | 11/08/2014 8:55 AM | | | | | PST | | + + + + + | Oxygen Saturation | - | - | | + + + + + | Inhaled Oxygen | - | - | | | Concentration | | | | + + + + + | Weight | 95.1 kg (209 lb 9.6 | 11/08/2014 8:55 AM | | | | oz) | PST | | + + + + + | Height | 157.5 cm (5' 2") | 11/08/2014 8:55 AM | | | | | PST | | + + + + + | Body Mass Index | 38.34 | 11/08/2014 8:55 AM | | | | | PST | | + + + + + documented in this encounter Patient Instructions Patient Instructions Jhoan Neal MD - 11/08/2014 9:41 AM PST1) MRA of your head at [facility] 2) Diagnostic sleep study 3) Start Indomethacin 4) Return to 1 month Patient Education Indomethacin Oral capsule Indomethacin Oral capsule, extended-release Indomethacin Oral suspension Indomethacin Sodium Solution for injection Indomethacin Oral capsule What is this medicine? INDOMETHACIN (in ortiz METH a sin) is a non-steroidal anti-inflammatory drug (NSAID). It is u sed to reduce swelling and to treat pain. It may be used for painful joint and muscular prob lems such as arthritis, tendinitis, bursitis, and gout. This medicine may be used for other purposes; ask your health care provider or pharmacist i f you have questions. What should I tell my health care provider before I take this medicine? They need to know if you have any of these conditions: asthma, especially aspirin sensitive asthma coronary artery bypass graft (CABG) surgery within the past 2 weeks depression drink more than 3 alcohol containing drinks a day heart disease or circulation problems like heart failure or leg edema (fluid retention) high blood pressure kidney disease liver disease Parkinson's disease seizures stomach bleeding or ulcers an unusual or allergic reaction to indomethacin, aspirin, other NSAIDs, other medicines, foods, dyes, or preservatives or trying to get breast-feeding How should I use this medicine? Take this medicine by mouth with food and with a full glass of water. Follow the directions on the prescription label. Take your medicine at regular intervals. Do not take your medici ne more often than directed. Long-term, continuous use may increase the risk of heart attack or stroke. A special MedGuide will be given to you by the pharmacist with each prescription and refill . Be sure to read this information carefully each time. Talk to your car customizer regarding the use of this medicine in children. Special care may be needed. While this drug may be prescribed for children as young as 15 years for selected conditions, precautions do apply. Elderly patients over 65 years old may have a [...] medicine with any of the following medications: cidofovir diflunisal ketorolac methotrexate pemetrexed triamterene This medicine may also interact with the following medications: alcohol antacids aspirin and aspirin-like medicines cyclosporine digoxin diuretics lithium medicines for diabetes medicines for high blood pressure medicines that affect platelets medicines that treat or prevent blood clots like warfarin NSAIDs, medicines for pain and inflammation, like ibuprofen or naproxen probenecid steroid medicines like prednisone or cortisone This list may not describe all possible interactions. Give your health care provider a list of all the medicines, herbs, non-prescription drugs, or dietary supplements you use. Also t ell them if you smoke, drink alcohol, or use illegal drugs. Some items may interact with you r medicine. What should I watch for while using this medicine? Tell your doctor or health personal care attendant if your pain does not get better. Talk to your doctor before taking another medicine for pain. Do not treat yourself. This medicine does not prevent heart attack or stroke. In fact, this medicine may increase the chance of a heart attack or stroke. The chance may increase with longer use of this medi cine and in people who have heart disease. If you take aspirin to prevent heart attack or st roke, talk with your doctor or health personal care attendant. Do not take medicines such as ibuprofen and naproxen with this medicine. Side effects such as stomach upset, nausea, or ulcers may be more likely to occur. Many medicines available wi thout a prescription should not be taken with this medicine. This medicine can cause ulcers and bleeding in the stomach and intestines at any time durin g treatment. Do not smoke cigarettes or drink alcohol. These increase irritation to your sto mach and can make it more susceptible to damage from this medicine. Ulcers and bleeding can happen without warning symptoms and can cause . You may get drowsy or dizzy. Do not drive, use machinery, or do anything that needs mental alertness until you know how this medicine affects you. Do not stand or sit up quickly, agueda cially if you are an older patient. This reduces the risk of dizzy or fainting spells. This medicine can cause you to bleed more easily. Try to avoid damage to your teeth and gum s when you brush or floss your teeth. What side effects may I notice from receiving this medicine? Side effects that you should report to your doctor or health personal care attendant as soon as p ossible: allergic reactions like skin rash, itching or hives, swelling of the face, lips, or tong ue difficulty breathing or wheezing nausea, vomiting signs and symptoms of bleeding such as bloody or black, tarry stools; red or dark-brown urine; spitting up blood or brown material that looks like coffee grounds; red spots on the skin; unusual bruising or bleeding from the eye, gums, or nose signs and symptoms of a blood clot such as changes in vision; chest pain; severe, sudden headache; trouble speaking; sudden numbness or weakness of the face, arm, or leg; trouble w alking unexplained weight gain or swelling unusually weak or tired yellowing of eyes or skin Side effects that usually do not require medical attention (report to your doctor or health personal care attendant if they continue or are bothersome): diarrhea dizziness headache heartburn This list may not describe all possible side effects. Call your doctor for medical advice a bout side effects. You may report side effects to FDA at 9-201-MOT-0324. Where should I keep my medicine? Keep out of the reach of children. Store at room temperature between 15 and 30 degrees C (59 and 86 degrees F). Keep container tightly closed. Throw away any unused medicine after the expiration date. NOTE:This sheet is a summary. It may not cover all possible information. If you have questi ons about this medicine, talk to your doctor, pharmacist, or health care provider. Copyright 2014 Gold Standard documented in this encounter Progress Notes Jhoan Neal MD - 11/08/2014 8:40 AM PSTFormatting of this note might be differen t from the original. Jhoan Neal MD [address] [facility], [address] [place] [address] Neurology Outpatient New Patient Note Referring Provider: Nathaniel Castaneda PA-C [address] [place] [address] Chief Complaint: Chief Complaint Patient presents with Migraine History of Present Illness: Ashley Brewer is a 38 y.o. female with a pertinent history of migraine headaches who pr esents with ongoing headaches. Ms. Brewer is accompanied by her who provides additional history. Referral documents from Dr. Castaneda were also reviewed today. Ms. Brewer has struggled with headaches since childhood, but notes that over the past several years they have increased in frequency and now occur nearly every day. A headache is usuall y right frontal, pressure like with shooting pain into the right eye. Ms. Brewer gets conjunct ival injection, tearing and nasal congestion with a headache. It is also associated with tyshawn tophobia, phonophobia and nausea when severe. A headache has lasted up to 13 hours, but is u sually much shorter than that. Ms. Brewer endorses horizontal diplopia with a headache, but de nies any focal numbness, weakness, vertigo or speech problems. Ms. Brewer cannot trigger a hea dache with touching her face or with cold air. She has tried ibuprofen and Imitrex, neither of which has helped. Ms. Brewer had an MRI done at [facility] 3 years ago that was normal. Ms. Brewer snores, has w itnessed apneas and grinds her teeth at night. 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 Ms. Brewer does not feel r efreshed in the morning. Past Medical History: Past Medical History Diagnosis Date Migraine Past Surgical History: Past Surgical History Procedure Laterality Date Dilation and curettage of uterus Current Medications: Current Medications ibuprofen (ADVIL,MOTRIN) 800 MG tablet (Taking) Take 800 mg by mouth every 6 hours as nee ded. SUMAtriptan (IMITREX) 25 mg tablet (Taking) Take 25 mg by mouth as needed for Migraine. Allergies: No Known Allergies Social History: History Social History Marital Status: Spouse Name: N/A Number of Children: N/A Years of Education: N/A Occupational History Not on file. Social History Main Topics Smoking status: Current Every Day Smoker Smokeless tobacco: Not on file Alcohol Use: Not on file Comment: recovering alcoholic Drug Use: No Comment: in the past Sexual Activity: Yes Other Topics Concern Not on file Social History Narrative Family History: Family History Problem Relation Age of Onset Hypertension Mother Hypertension Father Review of Systems: GENERALLY: No fever, no night sweats, no anemia, + fatigue, no recent profound weight marcus nges. EYES: + eye problems, + use of corrective lenses, no eye injury, + double vision, no blind ness. EARS, NOSE, AND THROAT: No changes in taste or smell, no hearing difficulty, + ringing in the ears, no ear drainage, + dizziness, no voice changes, no difficulty swallowing, + signif icant snoring, no sleep apnea, + sinus problems, + major dental work. NEUROLOGICALLY: Please see the review of systems discussed above in the history of present illness. In addition, the patient has numbness/pain of arms, awake with numbness/pain, wea kness, muscle aching, change in walk, head injury, back injury, pain in neck, pain in back, headaches, migraine, speech difficulty, numbness of face.. PSYCHIATRIC: No depression, no sleep disorders, no anxiety, no bipolar disorder, no psycho tic episodes. CARDIOVASCULAR: No heart attacks, no heart murmur, no heart fluttering, no chest pain, no ankle swelling. LUNG DISEASE: No shortness of breath, + cough, no tuberculosis, no bloody cough, no asthm a, no emphysema/COPD. GASTROINTESTINAL: No bowel disease, no nausea or vomiting, no rectal bleeding, no constipa tion, no stool incontinence, no liver disease, no gallbladder disease, no abdominal pain, no ulcers. KIDNEY DISEASE: No urinary frequency, no painful or difficult urination, + incontinence. ENDOCRINE: No diabetes, no thyroid disease, no osteopenia or osteoporosis, no breast drain age. SKIN: No breast lumps, no skin changes, no rashes, no itches. HEMATOLOGIC/LYMPHATIC: No enlarged lymph nodes, + easy or unusual bleeding, no personal hi story of cancer. RHEUMATOLOGIC: No joint arthritis, no rheumatoid arthritis. Examination: BP 132/77 | Pulse 65 | Resp 16 | Ht 1.575 m (5' 2") | Wt 95.074 kg (209 lb 9.6 oz) | B NH 38.33 kg/m2 Neck Circumference: 17 5/8" Langley Sleepiness Scale: 4 General: well developed and well nourished HEENT: ophthalmologic examination: normal w/o hemorrhages, exudates, or papilledema Nose: Nasal valve collapse: absent Turbinate hypertrophy: No Septal deviation: Yes Oropharynx: Modified Mallampati Score: 3 Tonsillar size: 1+ Palate: Normal Elongated Uvula: Yes Tongue Scalloping: Yes Teeth gonzalez on cheeks: Yes Overlapping teeth: No Overjet: 6mm Facial Profile: Maxillary deficiency: No Mandibular deficiency: Yes Micrognathia: No Cardiovascular: regular rate and rhythm Respiratory: clear to auscultation, no wheezes or rales and unlabored breathing Abdominal: soft, non-tender, active bowel sounds Extremities: peripheral pulses normal, no pedal edema, no clubbing or cyanosis Neurologic: Mental Status: alert, oriented to person, place, and time, speech is fluent, Normal fund o f knowledge Cranial Nerves: Cranial nerves II-XII intact Motor: normal 5/5 strength in all tested muscle groups, no muscle wasting or atrophy, no fa sciculations noted, no involuntary movements, no abnormalities of position, normal resting m uscle tone and no pronator drift Sensation: normal light touch Reflexes: REFLEX: RIGHT LEFT BICEPS 2 2 BRACHIORADIALIS 2 2 TRICEPS 2 2 PATELLAR 2 2 ACHILLES 2 2 Coordination/Cerebellar: rapid alternating hand movements intact and finger to nose intact Gait: Normal base, stride and turn. Intact tandem. Radiographic Review: Imaging was reviewed in detail during the visit. Imaging demonstrates essentially normal br ain. Laboratory Review: 01/30 CBC normal, bmp normal Assessment: Ashley Brewer is a 38 y.o. female with a history of migraine headaches who presents wit h ongoing headaches. 1) Headaches: differential includes paroxysmal hemicrania vs. Another autonomic cephalalgia vs. Atypical migraine vs. Overlap of both primary headache syndromes. Horizontal diplopia i s concerning for a potential underlying lesional cause. 2) Bruxism: possibly worsening headache syndrome. May be precipitated by SUKHJINDER. 3) SUKHJINDER: likely given craniofacial anatomy and history. May be worsening headache syndrome. Plan: 1) MRA head to ensure no romero aneurysm as source of headaches and diplopia. 2) Indomethacin challenge 25 mg TIDCC with titration to 50 mg TIDCC after 5 days. If no imp rovement in headaches will d/c. Patient will watch for dark/tarry stools and stomach pain. 3) Diagnostic PSG 4) Return to neurology clinic in 1 month Electronically signed by: Jhoan Neal MD, 11/08/2014 9:15 documented in th is encounter Plan of Treatment + + +--------+ + + | Name | Type | Priori | Associated Diagnoses | Order Schedule | | | | ty | | | + + +--------+ + + | Sleep Studies, | Outpatient | Routin | Snoring SUKHJINDER | Ordered: 11/08/2014 | | External - AMB | Referral | e | (obstructive sleep | | | Referral | | | apnea) | | + + +--------+ + + documented as of this encounter Results MRI Angiogram Head wo Contrast (12/16/2014 10:27 AM PDT) + + | Specimen | + + | | + + + + + | Narrative | Performed At | + + + | MRI ANGIOGRAM HEAD WO CONTRAST 12/16/2014 10:15 AM HISTORY: | [facility] | | Diplopia, right sided headaches. COMPARISON: None. PROTOCOL: | [facility] | | MRA of the head was performed with axial 3-D gtfa-gc-mffxog technique | [facility] | | without contrast. Reconstruction views [...] Normal | | | branching of the salvage grinder is seen. Limited evaluation of the brain [...] the head was performed with axial 3-D rvqa-[id number]-[id number] techniquewithout contrast. | | Reconstruction views were [...] superior cerebellar arteries. Normal branching of the salvage grinder | | isseen.Limited evaluation of the brain [...] superior cerebellar arteries. Normal branching of the salvage grinder is | |seen. | | | |Limited [...] | + + + + + | [facility] | [address] 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
--- OUTSIDE RECORDS SUMMARY | ~2020-05-11 | XMS | Clinical Summary ---
Demographics + + + | Address | [address] | | | [place] [address] | + + + | Home Phone | | + + + | Preferred Language | Unknown | + + + | Marital Status | | + + + | Lutheran Affiliation | Unknown | + + + | Race | or | + + + | Ethnic Group | Not or | + + + Author + + + | Author | [facility] | | | and [place] | + + + | Organization | [facility] | | | and [place] | + + + | Address | Unknown | + + + | Phone | Unavailable | + + + Support + + + + + | Name | Relationship | Address | Phone | + + + + + | Fco Chester | ECON | [address] | | | | | [place] | | | | | [address] | | + + + + + Care Team Providers + +------+ + | Care Release Of Information Specialist Name | Role | Phone | + +------+ + PCP | Unavailable | + +------+ + Allergies + + + + + + | Active Allergy | Reactions | Severity | Noted | Comments | | | | | Date | | + + + + + + | Indomethacin | Swelling | | 03/30/20 | | | | | | 15 | | + + + + + + | Oxycodone | Rash | Medium | 04/29/20 | | | | | | 16 | | + + + + + + Medications + + + +---------+------+------+-------+ | Medication | Sig | Dispensed | Refills | Star | End | Statu | | | | | | t | Date | s | | | | | | Date | | | + + + +---------+------+------+-------+ | tizanidine | Take 1 capsule by | 90 | 2 | 03/3 | | Activ | | (ZANAFLEX) 2 MG | mouth 3 times daily | capsule | | 0/20 | | e | | capsule | as needed for Muscle | | | 15 | | | | | spasms. | | | | | | + + + +---------+------+------+-------+ | ibuprofen | Take 600 mg by | | 0 | 05/2 | | Activ | | (ADVIL,MOTRIN) 600 | mouth. | | | 0/20 | | e | | MG tablet | | | | 16 | | | + + + +---------+------+------+-------+ Active Problems + + + | Problem | Noted Date | + + + | Radial styloid tenosynovitis | 11/04/2016 | + + + | Left hand pain | 11/04/2016 | + + + | Migraine | | + + + Family History + + +------+ + | Medical History | Relation | Name | Comments | + + +------+ + | Diabetes | Other | | Family history | + + +------+ + | Hypertension | Other | | Family history | + + +------+ + + +------+--------+ + | Relation | Name | Status | Comments | + +------+--------+ + | Other | | | | + +------+--------+ + Social History + +-------+ +--------+------+ | [...] Comments | + + +---------+ + | No | 0 Standard drinks | 0.0 | recovering alcoholic | | | or equivalent | | | + + +---------+ + + + + | Sex Assigned at | Date Recorded | | | | + + + | Not on file | | + + + Last Filed Vital Signs + + + + + | Vital Sign | Reading | Time Taken | Comments | + + + + + | Blood Pressure | 134/74 | 11/04/2016 2:03 PM | | | | | PST | | + + + + + | Pulse | 64 | 11/04/2016 2:03 PM | | | | | PST | [...] Weight | 93.9 kg (207 lb) | 11/04/2016 2:03 PM | | | | | PST | | + + + + + | Height | 157.5 cm (5' 2") | 11/04/2016 2:03 PM | | | | | PST | | + + + + + | Body Mass Index | 37.86 | 11/04/2016 2:03 PM | | | | | PST | | + + + + + Plan of Treatment + + +-------+ + | Health Maintenance | Due Date | Last | Comments | | | | Done | | + + +-------+ + | Vaccine: | | | | | Dtap/Tdap/Td (1 - | 6 | | | | Tdap) | | | | + + +-------+ + | Cervical Cancer | | | | | Screening (Pap) | 7 | | | + + +-------+ + | Vaccine: Influenza | | | | | (#1) | 0 | | | + + +-------+ + Results Not on filefrom Last 3 Months Insurance + +--------+ +--------+ +---------+--------+ | Payer | Benefi | Subscriber | Effect | Phone | Address | Type | | | t Plan | ID | laura | | | | | | / | | Dates | | | | | | Group | | | | | | + +--------+ +--------+ +---------+--------+ | [place]ICA[place] | MEDICA | [id number] | | [phone] | | Medica | | | [place] | | 016-Pr | 2 | | id | | | PLUS | | esent | | | | + +--------+ +--------+ +---------+--------+ | [facility] | IHS | [id number] | 12/21/18 | | | Indemn | | SERVICE | YELLOW | | 86-Pre | | | ity | | | HAWK | | sent | | | | + +--------+ +--------+ +---------+--------+ + +--------+ +--------+ + + | Guarantor Name | Accoun | Relation to | Date | Phone | Billing Address | | | t Type | Patient | of | | | | | | | | | | + +--------+ +--------+ + + | Ashley Brewer | Person | Self [birth year] | [address] | | | al/Fam | | 1976 | [phone] | [place] | | | charu | | | [address] (Home) | [address] | + +--------+ +--------+ + + Advance Directives + + + + + | Type | Date Recorded | Patient | Explanation | | | | School 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
--- OUTSIDE RECORDS SUMMARY | ~2020-05-11 | XMS | Encounter Summary ---
Demographics + + + | Address | [address] | | | [place] [address] | + + + | Home Phone | | + + + | Preferred Language | Unknown | + + + | Marital Status | | + + + | Uatsdin Affiliation | Unknown | + + + | Race | or | + + + | Ethnic Group | Not or | + + + Author + + + | Author | [facility] | | | and [place] | + + + | Organization | [facility] | | | and [place] | + + + | Address | Unknown | + + + | Phone | Unavailable | + + + Support + + + + + | Name | Relationship | Address | Phone | + + + + + | Fco Chester | ECON | [address] | | | | | [place] | | | | | [address] | | + + + + + Care Team Providers + +------+ + | Care Payroll Supervisor Name | Role | Phone | + +------+ + PCP | Unavailable | + +------+ + Encounter Details +--------+ + + + + | Date | Type | Department | Care Team | Description | +--------+ + + + + | 09/08/ | Hospital | [facility] | Raphael Hargrove | | | 2008 | Encounter | MED CTR EMERGENCY | MD [address] | | | | CENTER [address] [place] | | | | | [place], [place] | [place] [address] | | | | | [address] | [phone] | | | | | [phone] | | | +--------+ + + + + Social History + +-------+ +--------+------+ | Tobacco Use | Types | Packs/Day | Years | Date | | | | | Used | | + +-------+ +--------+------+ | Never Assessed | | | | | + +-------+ +--------+------+ + + + | Sex Assigned at | Date Recorded | | | | + + + | Not on file | | + + + documented as of this encounter Plan of Treatment Not on filedocumented as of this encounter Visit Diagnoses Not on filedocumented in this encounter"
--- OUTSIDE RECORDS SUMMARY | ~2020-05-11 | XMS | Encounter Summary ---
Demographics + + + | Address | [address] | | | [place] [address] | + + + | Home Phone | | + + + | Preferred Language | Unknown | + + + | Marital Status | | + + + | Mandaeism Affiliation | Unknown | + + + | Race | or | + + + | Ethnic Group | Not or | + + + Author + + + | Author | [facility] | | | and [place] | + + + | Organization | [facility] | | | and [place] | + + + | Address | Unknown | + + + | Phone | Unavailable | + + + Support + + + + + | Name | Relationship | Address | Phone | + + + + + | Fco Chester | ECON | [address] | | | | | [place] | | | | | [address] | | + + + + + Care Team Providers + +------+ + | Care Shell Plater Name | Role | Phone | + +------+ + PCP | Unavailable | + +------+ + Reason for Referral Insurance Referral (Routine) +--------+--------+ + + + + | Status | Reason | Specialty | Diagnoses / | Referred By | Referred To | | | | | Procedures | Contact | Contact | +--------+--------+ + + + + | Closed | | | Diagnoses | Alexis, | JOSE CRUZ | | | | | Radial | MD Noah | OVIDIO | | | | | styloid | [address] | [place] | | | | | tenosynoviti | [address] | MEDICAL | | | | | s | [address] | CENTER [address] | | | | | Procedures | [place], [place] | [place] | | | | | DME: Misc | [address] | [place], | | | | | left thumb | Phone: | [place] [address] | | | | | splica wrist | [phone] | Phone: | | | | | splint | Fax: | [phone] | | | | | | [phone] | Fax: | | | | | | | [phone] | +--------+--------+ + + + + Reason for Visit + + + | Reason | Comments | + + + | Wrist Pain | left wrist pain | + + + Service/Procedure (Routine) +--------+--------+ + + + + | Status | Reason | Specialty | Diagnoses / | Referred By | Referred To | | | | | Procedures | Contact | Contact | +--------+--------+ + + + + | Closed | | Physical | Diagnoses | Beckman, | Alexis, | | | | Medicine and | Carpal | Jamil Gates, | MD Noah | | | | Rehabilitatio | tunnel | [address] | [address] | | | | n | syndrome | [address] | [address] | | | | | Procedures | [place], | [place] | | | | | [place] | [place] [address] | [address] Phone: | | | | | &/SENS 3-4 | Phone: | [phone] | | | | | NRV CNDJ | [phone] | Fax: | | | | | PRECONF | Fax: | [phone] | | | | | [place]TR[place] | [phone] | | | | | | [place] | | | | | | | &/SENS 5-6 | | | | | | | NRV CNDJ | | | | | | | PRECONF | | | | | | | [place] | | | | | | | [place] EMG, | | | | | | | NEEDLE, TWO | | | | | | | [place] | | | | | | | NEEDLE EMG | | | | | | | EA EXTREMITY | | | | | | | W/PARASPINL | | | | | | | AREA | | | | | | | LIMITED | | | +--------+--------+ + + + + Encounter Details +--------+ + + + + | Date | Type | Department | Care Team | Description | +--------+ + + + + | 11/04/ | Procedure | [facility] [place] | Noah Espinoza, | Radial styloid | | 2017 | visit | PHYSIATRY [address] | [address] | tenosynovitis | | | | [address] | [address] [place], | (Primary Dx); Left | | | | [place] | [place] [address] | hand pain; Left | | | | [address] | [phone] | carpal tunnel | | | | [phone] | | syndrome; De | | | | | | Quervain's | | | | | | tenosynovitis, left | +--------+ + + + + Social [...] + + + documented in this encounter Procedure Notes Noah Espinoza MD - 11/04/2016 2:42 PM PSTAssociated Order(s): EMG STUDYProcedure(s) : EMG STUDYPre-Procedure Diagnose(s): Left hand painPost-Procedure Diagnose(s): Left carpal tunnel syndrome; De Quervain's tenosynovitis, left [facility], Physiatry [address] [address] Test Date: 11/04/2016 Patient Name: Ashley Brewer : 1975 Physician: Dr. eKvin Espinoza MR #: [id number] Sex: Female Referring Physician: Dr. Jamil Beckman HISTORY: Ms. Brewer is a 40-year-old left-handed woman who was referred to the EMG lab to evaluate for left carpal tunnel syndrome. Patient reports she was previously diagnosed with CTS based o n NCS/EMG testing by Dr. Esqueda. She denies any hand/finger numbness. Reports difficulty o pening jars. Also reports pain over dial radial forearm. Reports she has had multiple ster oid injections in the hand and for De quervain s. Altafklstein s (+). No thenar atrophy, pain with thumb abduction over forearm. Anti Sensory Summary Table Site NR Peak (ms) Norm Peak (ms) P-T Amp (V) Norm P-T Amp Site1 Site2 Delta-P (ms) Dist (cm) Luis (m/s) Norm Luis (m/s) Left Median Anti Sensory (2nd Digit) Wrist *4.0 <3.6 15.0 >10 Wrist 2nd Digit 4.0 14.0 *35 >39 Left Radial Anti Sensory (Base 1st Digit) Wrist 2.1 <3.1 34.4 Wrist Base 1st Digit 2.1 0.0 Left Ulnar Anti Sensory (5th Digit) Wrist 2.5 <3.7 15.4 >15.0 Wrist 5th Digit 2.5 14.0 56 >38 Motor Summary Table Site NR Onset (ms) Norm Onset (ms) O-P Amp (mV) Norm O-P Amp Site1 Site2 Delta-0 (ms) Dist (cm) Luis (m/s) Norm Luis (m/s) Left Median Motor (Abd Poll Brev) Wrist *4.3 <4.2 6.6 >5 Elbow Wrist 3.8 20.0 53 >50 Elbow 8.1 5.4 Left Ulnar Motor (Abd Dig Minimi) Wrist 3.0 <4.2 5.9 >3 B Elbow Wrist 2.5 18.0 72 >53 B Elbow 5.5 5.8 A Elbow B Elbow 1.5 10.0 67 >53 A Elbow 7.0 5.6 FINDINGS: 1. Left median SNAP demonstrated mildly prolonged peak latency and normal amplitude. 2. Left radial and left ulnar SNAP s were normal. 3. Left median CMAP demonstrated mildly prolonged distal latency, normal amplitude, and nor mal conduction velocity. 4. Left ulnar CMAP was normal. EMG not done as CMAP amplitudes were normal and patient denies history of neck and radicu lar arm symptoms IMPRESSION: This is an abnormal study. There is electrodiagnostic evidence of mild median mononeuropat hy across the wrist (i.e carpal tunnel syndrome). I do not have her previous EMG for compar rickie. There is no electrodiagnostic evidence of any ulnar neuropathy across the wrist or elbow, n or evidence of a radial neuropathy across the wrist. Although she does have evidence of carpal tunnel, is seems that her primary symptom is de Q uervain s tensosynonitis. Patient was given an Rx for a thumb splica wrist splint. Thank you for allowing me to perform neurodiagnostic testing on your patient. If you have a ny further questions or comments, please do not hesitate to call. Dr. Kevin Espinoza Diplomate, [place] Board of Physical Medicine and Rehabilitation. documented in thi s encounter Plan of Treatment + +------+--------+ + + | Name | Type | Priori | Associated Diagnoses | Order Schedule | | | | ty | | | + +------+--------+ + + | DME: Misc left thumb | DME | Routin | Radial styloid | Ordered: 11/04/2016 | | splica wrist splint | | e | tenosynovitis | | + +------+--------+ + + documented as of this encounter Procedures + +--------+ + + + | Procedure Name | Priori | Date/Time | Associated Diagnosis | Comments | | | ty | | | | + +--------+ + + + | EMG STUDY | Routin | 11/04/2016 | Left hand pain | Results for this | | | e | 2:42 PM | | procedure are in the | | | | PST | | results section. | + +--------+ + + + documented in this encounter Results EMG Study (11/04/2016 2:42 PM PST) + + + | Narrative | Performed At | + + + | Noah Espinoza MD 11/04/2016 14:42 [facility] | | | [facility] [place] [facility] [address] [place] [address] Ph: | | | Test Date: 11/04/2016 | | | Patient Name: Ashley Brewer : 1975 Physician: Dr. Brown | | | Alexis MR #: [id number] Sex: Female Referring Physician: | | | Jamil Beckman HISTORY: Ms. Brewer is a 40-year-old left-handed | | | woman who was referred to the EMG lab to evaluate for left carpal | | | tunnel syndrome. Patient reports she was previously diagnosed with | | | CTS based on NCS/EMG testing by Dr. Esqueda. She denies any | | | hand/finger numbness. Reports difficulty opening jars. Also | | | reports pain over dial radial forearm. Reports she has had | | | multiple steroid injections in the hand and for De quervain | | | | | | s. Finklstein | | | | | | s (+). No thenar atrophy, pain with thumb abduction over forearm. | | | Anti Sensory Summary Table Site NR Peak (ms) Norm Peak (ms) P-T | | | Amp ( V) Norm P-T Amp Site1 Site2 Delta-P (ms) Dist (cm) Luis (m/s) | | | Norm Luis (m/s) Left Median Anti Sensory (2nd Digit) Wrist | | | *4.0 <3.6 15.0 >10 Wrist 2nd Digit 4.0 14.0 *35 >39 Left Radial | | | Anti Sensory (Base 1st Digit) Wrist 2.1 <3.1 34.4 Wrist Base | | | 1st Digit 2.1 0.0 Left Ulnar Anti Sensory (5th Digit) Wrist | | | 2.5 <3.7 15.4 >15.0 Wrist 5th Digit 2.5 14.0 56 >38 Motor | | | Summary Table Site NR Onset (ms) Norm Onset (ms) O-P Amp (mV) Norm | | | O-P Amp Site1 Site2 Delta-0 (ms) Dist (cm) Luis (m/s) Norm Luis (m/s) | | | Left Median Motor (Abd Poll Brev) Wrist *4.3 <4.2 6.6 >5 | | | Elbow Wrist 3.8 20.0 53 >50 Elbow 8.1 5.4 Left | | | Ulnar Motor (Abd Dig Minimi) Wrist 3.0 <4.2 5.9 >3 B Elbow | | | Wrist 2.5 18.0 72 >53 B Elbow 5.5 5.8 A Elbow B Elbow 1.5 | | | 10.0 67 >53 A Elbow 7.0 5.6 FINDINGS: 1. | | | Left median SNAP demonstrated mildly prolonged peak latency and | | | normal amplitude. 2. Left radial and left ulnar SNAP | | | | | | s were normal. 3. Left median CMAP demonstrated mildly prolonged | | | distal latency, normal amplitude, and normal conduction velocity. | | | 4. Left ulnar CMAP was normal. EMG not done as CMAP amplitudes | | | were normal and patient denies history of neck and radicular arm | | | symptoms IMPRESSION: This is an abnormal study. There is | | | electrodiagnostic evidence of mild median mononeuropathy across the | | | wrist (i.e carpal tunnel syndrome). I do not have her previous EMG | | | for comparison. There is no electrodiagnostic evidence of any | | | ulnar neuropathy across the wrist or elbow, nor evidence of a radial | | | neuropathy across the wrist. Although she does have evidence | | | of carpal tunnel, is seems that her primary symptom is de | | | Quervain | | | | | | s tensosynonitis. Patient was given an Rx for a thumb splica wrist | | | splint. Thank you for allowing me to perform neurodiagnostic | | | testing on your patient. If you have any further questions or | | | comments, please do not hesitate to call. | | | Dr. Kevin Espinoza Diplomate, Citizen [place] | | | Board of Physical Medicine and Rehabilitation. | | | | | + + + documented in this encounter Visit Diagnoses + + | Diagnosis | + + | Radial styloid tenosynovitis - Primary | + + | Left hand pain Pain in limb | + + | Left carpal tunnel syndrome Carpal tunnel syndrome | + + | De Quervain's tenosynovitis, left Radial styloid tenosynovitis | + + documented in this encounter
--- OUTSIDE RECORDS SUMMARY | ~2020-05-11 | XMS | Encounter Summary ---
Demographics + + + | Address | [address] | | | [place] [address] | + + + | Home Phone | | + + + | Preferred Language | Unknown | + + + | Marital Status | | + + + | Advent Affiliation | Unknown | + + + | Race | or | + + + | Ethnic Group | Not or | + + + Author + + + | Author | [facility] | | | and [place] | + + + | Organization | [facility] | | | and [place] | + + + | Address | Unknown | + + + | Phone | Unavailable | + + + Support + + + + + | Name | Relationship | Address | Phone | + + + + + | Fco Chester | ECON | [address] | | | | | [place] | | | | | [address] | | + + + + + Care Team Providers + +------+ + | Care Credit Relationship Manager Name | Role | Phone | + +------+ + PCP | Unavailable | + +------+ + Encounter Details +--------+ + + + + | Date | Type | Department | Care Team | Description | +--------+ + + + + | 10/17/ | Abstract | [facility] [place] | Jhoan Neal | | | 2014 | | NEUROLOGY [place] | MD Denise Need updated | | | | | [address] [facility], | address | | | | | [address] [place] | | | | | | [place] [address] | | | | | | [phone] | | | +--------+ + + + [...]
--- OUTSIDE RECORDS SUMMARY | ~2020-05-11 | XMS | Encounter Summary ---
Demographics + + + | Address | [address] | | | [place] [address] | + + + | Home Phone | | + + + | Preferred Language | Unknown | + + + | Marital Status | | + + + | Tenriism Affiliation | Unknown | + + + | Race | or | + + + | Ethnic Group | Not or | + + + Author + + + | Author | [facility] | | | and [place] | + + + | Organization | [facility] | | | and [place] | + + + | Address | Unknown | + + + | Phone | Unavailable | + + + Support + + + + + | Name | Relationship | Address | Phone | + + + + + | Fco Chester | ECON | [address] | | | | | [place] | | | | | [address] | | + + + + + Care Team Providers + +------+ + | Care Hold Worker Name | Role | Phone | + +------+ + PCP | Unavailable | + +------+ + Encounter Details +--------+ + + + + | Date | Type | Department | Care Team | Description | +--------+ + + + + | 10/30/ | Abstract | [facility] [place] | Noah Espinoza, | | | 2017 | | REHABILITATION | [address] | | | | | MEDICINE [address] [place], | | | | | [address] [place] | [place] [address] | | | | | [place] [address] | [phone] | | | | | [phone] | | | +--------+ + + + [...]
[~2020-05-11 10:12] MED LIST changes: +ZOFRAN4 MG PO
[2020-05-11] MEDS ORDERED: CYCLOBENZAPRINE10 MG PO (10:54)
== END 2020-05-11 11:01 | disposition home or self-care (01) ==
LOC: ED 10:12
DX: S29.011A Strain of muscle and tendon of front wall of thorax, initial encounter (principal); G43.909 Migraine, unspecified, not intractable, without status migrainosus; F17.200 Nicotine dependence, unspecified, uncomplicated; X58.XXXA Exposure to other specified factors, initial encounter
CPT/HCPCS: 99284; A9270

== ENCOUNTER 2020-08-27 23:19 | Emergency (ER) | payer OTHER ==
[~2020-08-27] VITALS: Ht 157.5 cm; Wt 86.2 kg
[~2020-08-27 23:19] MED LIST changes: +CYCLOBENZAPRINE10 MG PO
--- NOTE | 2020-08-28 21:32 | EKG ---
[facility] [address] [facility] [place], [place] [address] Signed Normal sinus rhythm Normal ECG When compared with ECG of 22-APR-2017 17:09, No significant change was found Confirmed by PATO DAVIES MD ([id number]) on 08/28/2020 9:32:33 PM Electronically Signed By: PATO DAVIES MD 08/28/20 213 PATIENT NAME: MO TALLEY Electrocardiogram DATE OF : [birth year] PHYSICIAN: PATO DAVIES MD REPORT #: [id number] REPORT IS CONFIDENTIAL AND NOT TO BE RELEASED WITHOUT AUTHORIZATION
== END 2020-08-28 01:12 | disposition home or self-care (01) ==
LOC: ED 23:19
DX: U07.1 COVID-19 (principal); F17.200 Nicotine dependence, unspecified, uncomplicated
CPT/HCPCS: 71045; 80053; 83735; 84484; 85025; 85379; 93005; 93010; 99285-25

== ENCOUNTER 2020-11-01 01:30 | Emergency (ER) | payer OTHER ==
[~2020-11-01] VITALS: Ht 157.5 cm; Wt 86.2 kg
== END 2020-11-01 03:04 | disposition home or self-care (01) ==
LOC: ED 01:30
DX: S61.213A Laceration without foreign body of left middle finger without damage to nail, initial encounter (principal); W26.0XXA Contact with knife, initial encounter; F17.200 Nicotine dependence, unspecified, uncomplicated
CPT/HCPCS: 12001; 90471; 90715; 99282-25

== ENCOUNTER 2021-07-02 23:21 | Emergency (ER) | payer OTHER ==
[~2021-07-02] VITALS: Ht 157.5 cm; Wt 79.8 kg
== END 2021-07-03 00:29 | disposition home or self-care (01) ==
LOC: ED 23:21
DX: S70.362A Insect bite (nonvenomous), left thigh, initial encounter (principal); Y92.000 Kitchen of unspecified non-institutional (private) residence as the place of occurrence of the external cause; F17.200 Nicotine dependence, unspecified, uncomplicated; G43.909 Migraine, unspecified, not intractable, without status migrainosus; W57.XXXA Bitten or stung by nonvenomous insect and other nonvenomous arthropods, initial encounter
CPT/HCPCS: 99283; Q0163

== ENCOUNTER 2021-07-18 11:18 | Emergency (ER) | payer OTHER ==
[~2021-07-18] VITALS: Ht 157.5 cm; Wt 77.2 kg
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
[2021-07-18] MEDS ORDERED: HYDROCODON-ACE1 EA10 PO (11:56)
[2021-07-18] MEDS ORDERED: PENICILLIN V P500 MG PO (11:56)
== END 2021-07-18 12:03 | disposition home or self-care (01) ==
LOC: ED 11:18
DX: K08.89 Other specified disorders of teeth and supporting structures (principal); G43.909 Migraine, unspecified, not intractable, without status migrainosus; F17.200 Nicotine dependence, unspecified, uncomplicated
CPT/HCPCS: 99282

== ENCOUNTER 2023-07-12 01:02 | Emergency (ER) | payer OTHER ==
[~2023-07-12] VITALS: Ht 157.5 cm; Wt 76.0 kg
[~2023-07-12 01:02] MED LIST changes: +HYDROCODON-ACE1 EA10 PO; +PENICILLIN V P500 MG PO
[2023-07-12] MEDS ORDERED: BACTRIM DS TAB1 EACH PO (01:49)
[2023-07-12 01:57] VITALS: BP 150/96
== END 2023-07-12 01:59 | disposition home or self-care (01) ==
LOC: ED 01:02
DX: N76.4 Abscess of vulva (principal); F17.200 Nicotine dependence, unspecified, uncomplicated
CPT/HCPCS: 56405; 87070; 87075; 87205; 99283-25; A9270

== ENCOUNTER 2024-06-13 23:05 | Emergency (ER) | payer OTHER ==
[~2024-06-13] VITALS: Ht 157.5 cm; Wt 77.0 kg
[~2024-06-13 23:05] MED LIST changes: +BACTRIM DS TAB1 EACH PO
[2024-06-14] MEDS ORDERED: TRIMETHOPRIM/SULFAMETHOXAZOLE 1 EA HOME.PACK PO ONE (00:15)
[2024-06-14] MEDS ORDERED: HYDROCODONE BIT/ACETAMINOPHEN 5/325 MG 1 TAB HOME.PACK PO PRN (00:15)
[2024-06-14] MEDS ORDERED: BACTRIM DS TAB1 EACH PO (00:17)
[2024-06-14] MEDS ORDERED: HYDROCODON-ACE1 EA10 PO (00:17)
[2024-06-14 00:33] VITALS: BP 146/90
== END 2024-06-14 00:33 | disposition home or self-care (01) ==
LOC: ED 23:05
DX: L60.0 Ingrowing nail (principal); G43.909 Migraine, unspecified, not intractable, without status migrainosus; F17.200 Nicotine dependence, unspecified, uncomplicated
CPT/HCPCS: 11750; 99283-25; A9270

== ENCOUNTER 2024-07-27 21:32 | Emergency (ER) | payer OTHER ==
[~2024-07-27] VITALS: Ht 157.5 cm; Wt 78.1 kg
[2024-07-27] MEDS ORDERED: HYDROCODONE BIT/ACETAMINOPHEN 5/325 MG 1 TAB HOME.PACK PO PRN (22:30)
[2024-07-27] MEDS ORDERED: DIPHTH,PERTUSS(ACELL),TET VAC 0.5 ML SYRINGE IM ONE (22:30)
[2024-07-27 22:47] VITALS: BP 143/93
== END 2024-07-27 22:48 | disposition home or self-care (01) ==
LOC: ED 21:32
DX: L60.0 Ingrowing nail (principal); F17.200 Nicotine dependence, unspecified, uncomplicated
CPT/HCPCS: 11730; 90471; 90715; 99283-25; A9270

== ENCOUNTER 2025-02-25 08:23 | Emergency (ER) | payer OTHER ==
[~2025-02-25] VITALS: Ht 157.5 cm; Wt 76.8 kg
[2025-02-25] MEDS ORDERED: AMOX TR-K CLV1 EAC1 PO (09:30)
[2025-02-25 09:36] VITALS: BP 157/84
== END 2025-02-25 09:38 | disposition home or self-care (01) ==
LOC: ED 08:23
DX: S81.852A Open bite, left lower leg, initial encounter (principal); W55.01XA Bitten by cat, initial encounter; Y93.84 Activity, sleeping; F17.200 Nicotine dependence, unspecified, uncomplicated
CPT/HCPCS: 99283

== ENCOUNTER 2025-09-10 02:42 | Emergency (ER) | payer OTHER ==
[~2025-09-10] VITALS: Ht 157.5 cm; Wt 76.4 kg
[~2025-09-10 02:42] MED LIST changes: +AMOX TR-K CLV1 EAC1 PO
[2025-09-10 03:55] LABS: INFLUENZA B NAA NEGATIVE (NEGATIVE); RESPIRATORY SYNCYTIAL VIR NAA NEGATIVE (NEGATIVE)
[2025-09-10] MEDS ORDERED: AMOXICILLIN500 MG PO (04:27)
[2025-09-10] MEDS ORDERED: AMOXICILLIN 500 MG HOME.PACK PO ONE (04:30)
[2025-09-10 04:45] VITALS: BP 147/87
[2025-09-10] MEDS ORDERED: MENTHOL/CETYLPYRD CL 1 LOZ LOZENGE PO ONE (04:45)
== END 2025-09-10 04:47 | disposition home or self-care (01) ==
LOC: ED 02:42
PROVIDERS: Family Medicine
DX: J02.0 Streptococcal pharyngitis (principal); G43.909 Migraine, unspecified, not intractable, without status migrainosus; F17.200 Nicotine dependence, unspecified, uncomplicated
CPT/HCPCS: 87502; 87651; 99283; U0002